=== PATIENT | male | born 1990 | race Caucasian/White ===

== ENCOUNTER 2019-12-14 06:08 | Emergency (ER) | payer OTHER ==
[2019-12-14] MEDS ORDERED: ONDANSETRON 4MG/2ML VIAL As Ordered ONE (07:29)
== END 2019-12-14 12:06 | disposition home or self-care (01) ==
LOC: M ED 06:08
DX: R10.9 Unspecified abdominal pain (principal); E11.649 Type 2 diabetes mellitus with hypoglycemia without coma; R31.29 Other microscopic hematuria; F12.10 Cannabis abuse, uncomplicated; Z79.4 Long term (current) use of insulin

== ENCOUNTER → 2021-02-14 | Outpatient (CLI) | payer BC, OTHER ==
[2021-02-14 12:49] LABS: BLOOD UREA NITROGEN 12 MG/DL (7-18); CALCIUM LEVEL 9.2 MG/DL (8.5-10.1); CARBON DIOXIDE LEVEL 33 MEQ/L (21-32); CHLORIDE LEVEL 103 MEQ/L (98-107); CREATININE FOR GFR 0.98 MG/DL (0.70-1.30); GLOMERULAR FILTRATION RATE > 60.0 (>60); GLUCOSE, FASTING 180 MG/DL (70-100); POTASSIUM SERUM 4.5 MEQ/L (3.5-5.1); SODIUM LEVEL 138 MEQ/L (136-145)
[2021-02-14 12:50] LABS: ALBUMIN 3.9 GM/DL (3.2-5.2); ALT/SGPT 20 U/L (12-78); BILIRUBIN,TOTAL 0.8 MG/DL (0.2-1.0); CHOLESTEROL LEVEL 163 MG/DL (<200); CHOLESTEROL RISK RATIO 2.362 (<5); HDL CHOLESTEROL 69 MG/DL (>40); LDL CHOLESTEROL 83 MG/DL (<100); NON-HDL-C 94 MG/DL; TOTAL PROTEIN 7.3 GM/DL (6.4-8.2); TRIGLYCERIDES LEVEL 53 MG/DL (<150)
[2021-02-14 12:57] LABS: MALB URINE SIEMENS 35.5 MG/L; MAU/CREAT RATIO 19.5 MCG/MG (0.0-30.0)
== END ==
LOC: M LAB 11:15
PROVIDERS: ATTEND Nurse Practitioner Family
DX: E78.00 Pure hypercholesterolemia, unspecified (principal)

== ENCOUNTER 2021-05-19 19:08 | Emergency (ER) | payer BC, OTHER | END 2021-05-19 22:00 | disposition left against medical advice (07) | LOC: M ED 19:08 | DX: Z53.21 Procedure and treatment not carried out due to patient leaving prior to being seen by health care provider (principal) ==

== ENCOUNTER 2021-05-19 19:16 | Emergency (ER) | payer BC, OTHER ==
[~2021-05-19] VITALS: Ht 180.3 cm; Wt 77.3 kg
[2021-05-19 19:17] VITALS: BP 109/65
[2021-05-19] MEDS ORDERED: HumaLOG INSULIN (NovoLOG) PER UNIT SC STA (23:24)
== END 2021-05-19 23:38 | disposition left against medical advice (07) ==
LOC: M ED 19:16
DX: Z53.21 Procedure and treatment not carried out due to patient leaving prior to being seen by health care provider (principal)

== ENCOUNTER → 2021-07-22 | Outpatient (CLI) | payer BC, MEDICAID | LOC: M CARPUL 08:43 | PROVIDERS: ATTEND Student in an Organized Health Care Education/Training Program | DX: R55 Syncope and collapse (principal); I35.0 Nonrheumatic aortic (valve) stenosis ==

== ENCOUNTER 2022-09-12 18:19 | Observation (INO) | payer BC, MEDICAID ==
[~2022-09-12] VITALS: Ht 182.9 cm; Wt 74.7 kg
[2022-09-12 19:37] LABS: RSV AMPLIFICATION NEGATIVE (NEGATIVE)
[2022-09-12] MEDS ORDERED: ISOVUE-370 76% 100ML VIAL As Ordered ONE (20:13)
[2022-09-12 20:17] LABS: BASO # 0.1 10^3/uL (0.0-0.2); BASO % 0.9 % (0.0-1.0); EOS # 0.2 10^3/uL (0.0-0.5); EOS % 3.9 % (0.0-3.0); HEMATOCRIT 48.5 % (42.0-52.0); HEMOGLOBIN 16.3 g/dl (13.5-17.5); LYMPH # 1.6 10^3/uL (1.5-5.0); LYMPH % 29.5 % (24.0-44.0); MEAN CORPUSCULAR HEMOGLOBIN 31.6 pg (27.0-33.0); MEAN CORPUSCULAR HGB CONC 33.6 g/dl (32.0-36.5); MONO # 0.5 10^3/uL (0.0-0.8); MONO % 8.8 % (2.0-8.0); NEUTROPHILS # 3.1 10^3/uL (1.5-8.5); NEUTROPHILS % 56.7 % (36.0-66.0); PLATELET COUNT, AUTOMATED 225 10^3/uL (150-450); RED BLOOD COUNT 5.16 10^6/uL (4.30-6.10); WHITE BLOOD COUNT 5.4 10^3/uL (4.0-10.0)
[2022-09-12 20:24] LABS: LIPASE 18 U/L (12-53)
[2022-09-12 20:26] LABS: ALBUMIN 3.8 G/DL (3.2-5.2); ALKALINE PHOSPHATASE 137 U/L (46-116); ALT/SGPT 55 U/L (7.0-40); AST/SGOT 41 U/L (<34); BILIRUBIN,DIRECT 0.2 MG/DL (<0.4); BILIRUBIN,TOTAL 0.7 MG/DL (0.3-1.2); TOTAL PROTEIN 7.5 G/DL (5.7-8.2)
[2022-09-12] MEDS ORDERED: NS 1,000 ML IV ONE ×2 (20:40→22:30)
[2022-09-12] MEDS ORDERED: HumuLIN R (REGULAR) INSULIN (NovoLIN R) **100U/ML** PER UNIT IV ONE (20:40)
[2022-09-12 21:01] LABS: HEMOGLOBIN A1c 11.1 % (4.0-6.0)
[2022-09-12 21:02] LABS: OSMOLALITY SERUM 303 MOSM/KG (275-295)
[2022-09-12 21:06] LABS: BLOOD UREA NITROGEN 15 MG/DL (9-23); CALCIUM LEVEL 8.8 MG/DL (8.5-10.1); CARBON DIOXIDE LEVEL 20 MMOL/L (20-31); CHLORIDE LEVEL 92 MMOL/L (98-107); CREATININE FOR GFR 0.86 MG/DL (0.70-1.30); GLOMERULAR FILTRATION RATE > 60.0 (>60); GLUCOSE, FASTING 485 MG/DL (60-100); POTASSIUM SERUM 5.4 MMOL/L (3.5-5.1); SODIUM LEVEL 129 MMOL/L (136-145)
[2022-09-12 22:13] LABS: ABG BASE EXCESS -5.6 (-2.0-2.0); ABG HCO3 17.9 MMOL/L (22.0-26.0); ABG PARTIAL PRESSURE CO2 29.9 mmHg (35.0-45.0); ABG PARTIAL PRESSURE O2 96.7 mmHg (75.0-100.0); ABG STANDARD HCO3 19.9 MMOL/L. (22.0-26.0); ABG TOTAL CO2 18.8 MMOL/L (22.0-29.0); ABG pH (ARTERIAL) 7.395 UNITS (7.350-7.450)
[2022-09-12 22:23] VITALS: BP 115/76
[2022-09-12 23:12] LABS: ACETONE/KETONE > 4.50 MMOL/L (0.02-0.27)
[2022-09-13] MEDS ORDERED: HOME MED LIST COMPLETE! XX SCH (00:10)
[2022-09-13] MEDS ORDERED: ADME100I SC (00:10)
== END 2022-09-13 01:54 | disposition left against medical advice (07) ==
LOC: M ED 18:19 → M ED INP 18:20 → UNDOADMOB 09-13 00:42 → M ED INP 09-13 00:42 → UNDODISOB 09-13 01:54
PROVIDERS: ADMIT Internal Medicine; ATTEND Internal Medicine
DX: E10.65 Type 1 diabetes mellitus with hyperglycemia (principal); J20.9 Acute bronchitis, unspecified; Z79.4 Long term (current) use of insulin; F17.210 Nicotine dependence, cigarettes, uncomplicated; F12.10 Cannabis abuse, uncomplicated; K51.00 Ulcerative (chronic) pancolitis without complications
CPT/HCPCS: 71045; 74177; 80047; 80048; 80076; 81001; 82010; 82803; 83036; 83690; 83930; 85025; 87631; 87880; 93005; 93041; 96374; 96375; 96376; 99284; J1815; Q9967